=== PATIENT | male | born 1945 | race Caucasian/White ===

== ENCOUNTER 2018-01-25 09:39 | Observation (INO) | payer OTHER ==
[2018-01-25 10:53] LABS: Absolute Lymphocytes (CBC) 1.1 K/uL (0.7-4.9); Absolute Monocytes 0.6 K/uL (0.1-1.3); Absolute Neutrophil 6.9 K/uL (1.8-8.0); Basophils % 0.3 % (0-1.3); Eosinophils % 1.7 % (0-4.4); Hematocrit 49.8 % (39.6-49.0); Lymphocytes % 12.9 % (15.3-44.8); MCH 30.3 pg (27.0-35.0); MCV 91.6 fL (80-100); MPV 9.4 fL (7.6-11.3); Monocytes % 6.3 % (3.3-12.3); RBC Red Blood Cell Count 5.44 M/uL (4.33-5.43)
[2018-01-25 10:56] VITALS: BMI 26.6
[2018-01-25 11:03] LABS: Bicarbonate 26 mEq/L (21-31); Glucose Level 93 mg/dL (65-120); Sodium Level 136 mEq/L (135-145)
[2018-01-25 11:06] LABS: ALT/SGPT 16 IU/L (10-60); AST/SGOT 26 IU/L (10-42); Albumin 3.7 g/dL (3.2-5.5); Alkaline Phosphatase 66 IU/L (42-121); BUN Blood Urea Nitrogen 21 mg/dL (6-20); Protein, Total 6.1 g/dL (6.0-8.3)
[2018-01-25] MEDS: ALBUTEROL 2.5 MG/3 ML NEB SOL NEB SCH ×3 (11:27→19:32)
[2018-01-25] MEDS ORDERED: NA CHLORIDE 0.9% 100 ML ONE (11:47)
[2018-01-25] MEDS: AZITHROMYCIN IV 250 MG in NA CHLORIDE 0.9% 250 ML IVPB SCH (11:50)
[2018-01-25] MEDS: METHYLPREDNISOLONE 40 MG INJ IV SCH ×2 (11:50→20:20)
[2018-01-25] MEDS: Levofloxacin500mg IV 500 MG/100 ML BAG IV SCH (11:50)
[2018-01-25] MEDS: ACETAMINOPHEN 500 MG TAB PO PRN (15:56)
[2018-01-25] MEDS ORDERED: DICLOFENAC SODIUM APPL TOP PRN (16:37)
[2018-01-25] MEDS: PANTOPRAZOLE 40MG TABLET PO SCH (17:56)
[2018-01-25] MEDS ORDERED: ROPINIROLE HCL 0.25 MG TAB PO SCH (21:00)
[2018-01-25] MEDS ORDERED: TRAMADOL HCL 50 MG TAB PO SCH (21:00)
[2018-01-25] MEDS: GUAIFENESIN/CODEINE 5ML UCUP PO PRN (21:17)
[2018-01-26] MEDS: ACETAMINOPHEN 500 MG TAB PO PRN ×2 (01:01→07:36)
[2018-01-26] MEDS: GUAIFENESIN/CODEINE 5ML UCUP PO PRN (07:36)
[2018-01-26] MEDS: ALBUTEROL 2.5 MG/3 ML NEB SOL NEB SCH ×3 (07:50→16:07)
[2018-01-26] MEDS: AZITHROMYCIN IV 250 MG in NA CHLORIDE 0.9% 250 ML IVPB SCH (08:37)
[2018-01-26] MEDS: PANTOPRAZOLE 40MG TABLET PO SCH ×3 (08:38→17:54)
[2018-01-26] MEDS: METHYLPREDNISOLONE 40 MG INJ IV SCH (08:39)
[2018-01-26] MEDS ORDERED: HYDROCODONE/APAP 7.5/325 MG TAB PO PRN (08:47)
[2018-01-26] MEDS ORDERED: MAXZIDE (HCTZ 25/TRIAMTERENE 37.5MG) TAB PO SCH (09:00)
[2018-01-26] MEDS ORDERED: [UNRECOGNIZED DRUG - OTHER] PO SCH (09:00)
[2018-01-26] MEDS ORDERED: Morphine 2 MG/2 ML SYR IV ONE (09:00)
[2018-01-26] MEDS ORDERED: TAMSULOSIN 0.4 MG SR CAP PO SCH (09:00)
[2018-01-26] MEDS ORDERED: FOLIC ACID 1 MG TABLET PO SCH (09:00)
[2018-01-26] MEDS ORDERED: CYANOCOBALAMIN 1,000 MCG TAB PO SCH (09:00)
[2018-01-26 10:28] LABS: Urine Appearance CLEAR; Urine Bilirubin NEGATIVE (NEG); Urine Blood NEGATIVE (NEG); Urine Color YELLOW; Urine Glucose 1+ (NEG); Urine Protein NEGATIVE (NEG); Urine Urobilinogen 0.2 mg/dL (0.2-1.0)
[2018-01-26 10:41] LABS: Urine Bacteria <20 /HPF (NONE SEEN); Urine RBC <5 /HPF (NONE SEEN)
[2018-01-26 10:42] LABS: Urine Culture Reflex Order NOT NEEDED
[2018-01-26] MEDS: Levofloxacin500mg IV 500 MG/100 ML BAG IV SCH (11:17)
--- NOTE | 2018-01-26 13:26 | HP ---
Date of Admission: 01/25/2018 Chief Complaint: Coughing and wheezing. History Of Present Illness: A 72-year-old male was seen in the office for bronchitis 2 weeks ago. H e was given Augmentin. He returned because of continued symptoms. A chest x-ray was done. There wa s probable pneumonia; however, he did not want to go into hospital. He wanted to try a different ant ibiotic. He was given Levaquin, which he tried for another week and returned because of continued sy mptoms. The patient is admitted with a diagnosis of pneumonia and COPD exacerbation. The patient de nied any hemoptysis. No history of chest pain. The patient has a past history of smoking; however, he does not smoke presently. Past Medical History: Positive for hypertension, chronic pain syndrome, gastroesophageal reflux. Past Surgical History: Positive for gastric sleeve surgery, knee surgery, hand surgery, and foot antoni agapito. Other Medical Problems: Include history of disk disease of the spine. Family History: Noncontributory. Personal History: No known allergies. Home Medicines: Please refer to the list. Review of Systems: The patient denied any fever, chills, rigors. Physical Examination: General: Revealed a 72-year-old male with audible wheezing. HEENT: Congested throat. Neck: Supple. JVD negative. Chest: Bilateral wheezes. Heart: Regular. Abdomen: Pendulous. Nontender. Extremities: No edema. Laboratory Data: White count normal. Chest x-ray done last week showed COPD changes plus possible p neumonia. Assessment: 1.Chronic obstructive pulmonary disease exacerbation. 2.Pneumonia. 3.Hypertension. 4.Osteoarthritis. 5.Status post gastric sleeve surgery. Plan: The patient will receive IV Levaquin and Zithromax. The patient also will receive steroids. He will be restarted on his regular medications. Since he has been taking Lortab, it will be restart ed to prevent withdrawal. JESICA/WILI Voice ID: [id number]
--- NOTE | 2018-01-26 14:15 | RAD REPORT ---
EXAM DESCRIPTION: RAD - Chest Pa And Lat (2 Views) - 01/26/2018 1:54 pm CLINICAL HISTORY: Pneumonia COMPARISON: January 15 TECHNIQUE: PA and lateral views of the chest were obtained. FINDINGS: The lungs are fibrotic as a baseline. Interstitial pattern is similar to comparison. No fo ananda pneumonia is identifiable. No new or progressive finding from the prior study. Failure and volume overload are not suspected. Heart size is normal and central vasculature is within normal limits. No pleural effusion or pneumothorax seen. No acute bony finding noted. No aortic abnormality. IMPRESSION: Fibrotic lung change similar to prior imaging. No focal pneumonia identifiable.
[2018-01-26 16:22] VITALS: BP 155/67; TEMP 98.2
[2018-01-26 18:23] VITALS: O2SAT 98
== END 2018-01-26 18:04 | disposition home or self-care (01) ==
LOC: 4TH 09:58 → INTOOBSV 09:58
PROVIDERS: ADMIT Internal Medicine; ATTEND Internal Medicine
DX: J18.9 Pneumonia, unspecified organism (principal); J44.1 Chronic obstructive pulmonary disease with (acute) exacerbation; J44.0 Chronic obstructive pulmonary disease with (acute) lower respiratory infection; M19.90 Unspecified osteoarthritis, unspecified site; I10 Essential (primary) hypertension; G89.4 Chronic pain syndrome; K21.9 Gastro-esophageal reflux disease without esophagitis; Z98.84 Bariatric surgery status
CPT/HCPCS: 36415; 71046; 80053; 81001; 85025; 87040 ×2; 87070; 87205; 94640; G0378; G0379; J0456; J2270; J2920 ×3

== ENCOUNTER 2018-06-04 08:31 | Day surgery (SDC) | payer OTHER ==
[2018-06-04 09:16] VITALS: BMI 29.2
[2018-06-04 09:45] LABS: MPV 9.2 fL (7.6-11.3)
[2018-06-04 09:50] LABS: Protime INR 1.06
[2018-06-04 10:13] LABS: Platelet Estimate ADEQ
--- NOTE | 2018-06-04 12:51 | RAD REPORT ---
EXAM DESCRIPTION: CT - Myelogram C Spine - 06/04/2018 11:22 am CLINICAL HISTORY: ^M542, M4722 Patient detailed neck pain and left upper extremity radiculopathy COMPARISON: Cervical spine October 2015 TECHNIQUE: Axial 2 mm thick images of the cervical spine were obtained with sagittal and coronal rec onstruction images generated and reviewed. Intrathecal placement of contrast preceding the examinatio n. Myelogram procedure is separately detailed. All CT scans are performed using dose optimization technique as appropriate and may include automated exposure control or mA/KV adjustment according to patient size. FINDINGS: Cervical bodies are normal in height. No AP subluxation abnormality. There is a left conve x curvature at the cervicothoracic junction. No lateral subluxation abnormality. No cervical body of compression fracture. No lytic, sclerotic or expansile bony destructive process. No paraspinal mass. Mild degenerative changes are present at the dens C1 level. No encroachment into the central canal. C2-C3 level: No herniation or significant disc bulge. There is minimal endplate spurring without cent ral canal encroachment. No right foraminal encroachment. The patient has mild left bony foraminal enc roachment from prominent left facet joint degenerative change. C3-C4 level: No disc herniation. There is no central spinal stenosis. The patient has minimal disc bu lge and endplate spurring changes. No right foraminal encroachment. The patient has very pronounced l eft facet joint degenerative change causing moderate left bony foraminal encroachment. C4-C5 level: Posterior endplate spurring changes are present partially attenuating the anterior subar achnoid space. Midline canal diameter is 13 mm. Severe right-sided facet joint degenerative changes a re present causing advanced right foraminal stenosis. No significant left foraminal encroachment at t his level. Left-sided facet joint degenerative change is minimal. C5-C6 level: No herniation or significant disc bulge. Midline canal diameter is 14 mm. The patient wasserman s severe right-sided facet joint degenerative change causing advanced right foraminal stenosis. There is minimal mass effect on the right lateral aspect of the central canal and cord. No significant lef t foraminal stenosis. C6-C7 level: Disc is narrowed. There is circumferential endplate spurring. Mild disc bulge and endpla te spurring changes in the central canal partially attenuate the subarachnoid space. Midline canal is 10-11 mm. Mild to moderate bilateral foraminal encroachment is seen from bilateral uncovertebral ryan nt hypertrophy. C7-T1 level: No herniation or significant disc bulge. No central canal canal or significant right for aminal stenosis. Left foraminal encroachment is present from facet hypertrophic degenerative change. No focal narrowing or expansion of the cord. IMPRESSION: 1. Cervical spine degenerative changes are present as detailed. No central spinal stenos is present. No cervical cord abnormality is identifiable. 2. The patient has significant facet joint degenerative change and areas of uncovertebral joint hyper trophy causing significant bony foraminal encroachment of exit foramina. Findings are detailed at eac h level in the body of the report. 3. No acute or destructive bone process.
--- NOTE | 2018-06-04 12:54 | RAD REPORT ---
EXAM DESCRIPTION: RAD - Myelography C Spine - 06/04/2018 11:36 am CLINICAL HISTORY: ^M542, M4722 COMPARISON: Cervical spine imaging October 2015. TECHNIQUE: Patient presents for cervical myelogram and post-myelogram CT imaging. Patient had no con traindicated allergy or medication history. PT/INR studies show normal range value. The myelogram procedure, risks and alternatives were discussed with the patient in detail. After answ ering all questions, both oral and written consent were obtained. Time out procedure was performed. The patient was placed in an oblique prone position on the fluoroscopic table. Skin of the lower back was prepped and draped in the usual sterile fashion. From a oblique approach the thecal sac was acce ssed at the L4 level. Intrathecal placement was confirmed. Clear colorless CSF was observed. Approxim ately 9 mL of Isovue M 300 contrast material was instilled into the thecal sac. Needle was withdrawn and bandage placed to the puncture site. The patient was placed in supine Trendelenburg position with the chin flexed. This provided for a slow transfer of the contrast material into the cervical canal. The patient transferred to the CT suite for cross-sectional imaging. The patient tolerated procedure well without complications. Post-procedure care and precaution instru ctions were given to the patient. IMPRESSION: 1. Myelogram procedure was performed as detailed. Myelogram and CT findings are incorpor ated into the CT cervical spine report. 2. The patient tolerated procedure without complications. Post-procedure care and precaution instruct ions were given to the patient.
[2018-06-04 13:33] VITALS: TEMP 97.9
[2018-06-04 14:04] VITALS: BP 161/64; O2SAT 97
== END 2018-06-04 14:02 | disposition home or self-care (01) ==
LOC: DS 08:31
PROVIDERS: ATTEND Specialist
DX: M54.2 Cervicalgia (principal); M47.22 Other spondylosis with radiculopathy, cervical region
CPT/HCPCS: 36415; 62302; 72126; 85049; 85610; 85730

== ENCOUNTER 2019-12-30 08:18 | Day surgery (SDC) | payer OTHER ==
[2019-12-30 08:56] LABS: MPV 9.7 fL (7.6-11.3)
[2019-12-30 08:59] LABS: Protime INR 1.1
[2019-12-30 09:05] VITALS: BMI 29.4
[2019-12-30 09:27] LABS: Platelet Estimate ADEQ
--- NOTE | 2019-12-30 12:23 | RAD REPORT ---
EXAM DESCRIPTION: CT - C Spine Wo Con - 12/30/2019 11:22 am CLINICAL HISTORY: Arm radiculopathy M542,M5412 COMPARISON: 2018 TECHNIQUE: Computed axial tomography of the cervical spine were obtained with sagittal and coronal r econstruction images generated and reviewed. 12 cc Isovue 300 injected into the subarachnoid space All CT scans are performed using dose optimization technique as appropriate and may include automated exposure control or mA/KV adjustment according to patient size. FINDINGS: Mild spondylosis C2-3 Disc bulge at C3-4. Small osteophytes. Left facet hypertrophy. Moderate narrowing left neural foramin a Disc bulge and osteophytes C4-5. Facet hypertrophy. Moderate narrowing of the right neural foramina Disc bulge and osteophytes C5-6. Right facet hypertrophy. Marked narrowing of the right neural forami na Disc bulge and osteophytes C6-7. The thecal sac measures 9 millimeters. Moderate narrowing of the lef t neural foramina. Mild spondylosis C7-T1 Anterior fusion involves C7 and T1 by plate and screws. A bone plug is noted. A neurostimulator device is present within the cervical spinal canal. 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
--- NOTE | 2019-12-30 12:29 | RAD REPORT ---
EXAM DESCRIPTION: RAD - Myelography C Spine - 12/30/2019 11:09 am CLINICAL HISTORY: Radiculopathy COMPARISON: 2018 FINDINGS: Risks, benefits alternatives to the procedure spine to the patient and informed consent obtained. Patient placed prone into the fluoroscopy suite Skin and subcutaneous tissues anesthetized with lidocaine Under fluoroscopic guidance 22 gauge spinal needle was placed into the thecal sac at the L2-3 level a nd 12 cc Isovue-300 administered. Fluoroscopic image demonstrates opacification of the lumbar thecal sac. Fluoroscopy time 2.9 minutes Patient was then placed into the Trendelenburg position for few minutes. Patient then left for the CT department for a cervical CT IMPRESSION: Myelogram
[2019-12-30 14:25] VITALS: BP 133/53; TEMP 98.6; O2SAT 98
== END 2019-12-30 14:27 | disposition home or self-care (01) ==
LOC: DS 08:18
PROVIDERS: ATTEND Specialist
DX: M54.2 Cervicalgia (principal); M54.12 Radiculopathy, cervical region
CPT/HCPCS: 36415; 62302; 72125; 85049; 85610; 85730

== ENCOUNTER 2020-12-03 11:51 | Emergency (ER) | payer OTHER ==
--- OUTSIDE RECORDS SUMMARY | 2020-12-03 11:53 | XMS REPORT | Continuity of Care Document ---
:1945 Author Organization [facility] t Address [address] [place] [address] Care Team Providers Name Role Phone Jessica Monroe Attending Clinician Problems This patient has no known problems. Allergies, Adverse Reactions, Alerts This patient has no known allergies or adverse reactions. Medications This patient has no known medications. Procedures This patient has no known procedures. Encounters Start End Encounter Admission Attending Care Care Encounter Source Date/Time Date/Time Type Type Clinicians Facility Department ID 2020-05-26 2020-05-26 Office Erik [facility] [id number] 14:22:57 15:05:24 Visit [facility] [id number] Surgical [id number] Specialti [id number] es [address] 2020-05-26 2020-05-26 Telephone Erik [facility] [id number] 00:00:00 00:00:00 [facility] [id number] Surgical [id number] Specialti [id number] es [address] Results This patient has no known results.
[2020-12-03 14:12] LABS: SARS-COV-2 RT PCR NEGATIVE (NEGATIVE)
--- NOTE | 2020-12-03 15:23 | RAD REPORT ---
EXAM DESCRIPTION: RAD - Chest Pa And Lat (2 Views) - 12/03/2020 1:54 pm CLINICAL HISTORY: Cough;Congestion Chest pain. COMPARISON: Chest Pa And Lat (2 Views) dated 01/26/2018; Chest Pa And Lat (2 Views) dated 01/15/2018; C HEST PA AND LAT 2 VIEW dated 07/02/2014; CHEST PA AND LAT 2 VIEW dated 04/22/2010 FINDINGS: The lungs are emphysematous but clear. The heart is normal in size. No displaced fractures . Cervical hardware plate. IMPRESSION: Mild to moderate COPD.
--- NOTE | 2020-12-03 15:46 | ER ---
Nurse's Notes [facility] Name: Alexis Romo Age: 75 yrs Sex: Male : 1945 Arrival Date: 12/03/2020 Time: 11:54 Bed 23 Private MD: Diagnosis: Fever, unspecified;Chronic obstructive pulmonary disease with acute lower respiratory infection Presentation: 12/03 12:32 Chief complaint: Patient states: fever since 3 am took aspirin. Coronavirus screen: Client presents with at least one sign or symptom that may indicate coronavirus-19. Standard/surgical mask placed on the client. Provider contacted for isolation considerations. reports no known exposure. Ebola Screen: Patient negative for fever greater than or equal to 101.5 degrees Fahrenheit, and additional compatible Ebola Virus Disease symptoms. Initial Sepsis Screen: Does the patient meet any 2 criteria? No. Patient's initial sepsis screen is negative. Does the patient have a suspected source of infection?. Risk Assessment: Do you want to hurt yourself or someone else? Patient reports no desire to harm self or others. Onset of symptoms was December 03, 2020 at 03:00. 12:32 Method Of Arrival: Ambulatory 12:32 Acuity: BEBE 4 kl Triage Assessment: 12:36 General: Appears in no apparent distress. comfortable, well groomed, well developed, kl well nourished, Behavior is calm, cooperative. Historical: - Allergies: 12:35 No Known Allergies; kl - Immunization history:: Adult Immunizations up to date, . - Social history:: Smoking status: Patient/guardian denies using tobacco, but has a distant history of tobacco abuse. Screenin:32 Abuse screen: Denies threats or abuse. Denies injuries from another. Nutritional iw screening: No deficits noted. Tuberculosis screening: No symptoms or risk factors identified. Fall Risk No IV (0 pts). Assessment: 15:32 General: Appears in no apparent distress. Behavior is calm, cooperative. Pain: Denies iw pain. Neuro: Level of Consciousness is awake, alert, obeys commands, Oriented to person, place, time, situation, Moves all extremities. Full function. Respiratory: Reports shortness of breath cough that is Respiratory effort is even, unlabored, Respiratory pattern is regular, symmetrical. GI: Abdomen is non-distended. Derm: Skin is intact, is healthy with good turgor. Musculoskeletal: Range of motion: intact in all extremities. Vital Signs: 12:32 BP 123 / 53; Pulse 68; Resp 18; Temp 98.6(T); Pulse Ox 97% ; kl ED Course: 11:54 Patient arrived in ED. as 12:35 Triage completed. kl 13:52 XRAY Chest Pa And Lat (2 Views) In Process Unspecified. EDMS 15:26 Cary Pineda RN is Primary Nurse. iw 15:31 Arnaldo Bush PA is PHCP. jr8 15:31 Robbin Mclaughlin MD is Attending Physician. jr8 15:33 Patient has correct armband on for positive identification. iw 15:33 No provider procedures requiring assistance completed. iw Administered Medications: No medications were administered Outcome: 15:45 Discharge ordered by . jr8 16:01 Patient left the ED. walter Signatures: Dispatcher [employer] Brionna Castro RN RN Fran Khanna PA PA jmm Martinez, Amelia as Cary Pineda RN RN Arnaldo Bush PA PA jr8
--- NOTE | 2020-12-03 15:46 | EDPHYS ---
Physician Documentation [facility] Name: Alexis Romo Age: 75 yrs Sex: Male : 1945 Arrival Date: 12/03/2020 Time: 11:54 Bed 23 Private MD: ED Physician Robbin Mclaughlin HPI: 12/03 15:46 This 75 yrs old Male presents to ER via Ambulatory with complaints of r/o jr8 covid. 15:46 The patient reports fever, not measured (subjective). Onset: The symptoms/episode jr8 began/occurred acutely, yesterday. Modifying factors: there are no obvious modifying factors. Associated signs and symptoms: Pertinent positives: shortness of breath. Severity of symptoms: At their worst the symptoms were mild in the emergency department the symptoms have resolved. The patient has not experienced similar symptoms in the past. The patient has not recently seen a physician. Historical: - Allergies: 12:35 No Known Allergies; kl - Immunization history:: Adult Immunizations up to date, . - Social history:: Smoking status: Patient/guardian denies using tobacco, but has a distant history of tobacco abuse. ROS: 15:46 Eyes: Negative for injury, pain, redness, and discharge, ENT: Negative for injury, jr8 pain, and discharge, Neck: Negative for injury, pain, and swelling, Cardiovascular: Negative for chest pain, palpitations, and edema, Abdomen/GI: Negative for abdominal pain, nausea, vomiting, diarrhea, and constipation, Back: Negative for injury and pain, MS/Extremity: Negative for injury and deformity, Skin: Negative for injury, rash, and discoloration, Neuro: Negative for headache, weakness, numbness, tingling, and seizure. 15:46 Constitutional: Positive for fever. 15:46 Respiratory: Positive for shortness of breath. Exam: 15:46 Eyes: Pupils equal round and reactive to light, extra-ocular motions intact. Lids and jr8 lashes normal. Conjunctiva and sclera are non-icteric and not injected. Cornea within normal limits. Periorbital areas with no swelling, redness, or edema. ENT: Nares patent. No nasal discharge, no septal abnormalities noted. Tympanic membranes are normal and external auditory canals are clear. Oropharynx with no redness, swelling, or masses, exudates, or evidence of obstruction, uvula midline. Mucous membranes moist. Neck: Trachea midline, no thyromegaly or masses palpated, and no cervical lymphadenopathy. Supple, full range of motion without nuchal rigidity, or vertebral point tenderness. No Meningismus. Cardiovascular: Regular rate and rhythm with a normal S1 and S2. No gallops, murmurs, or rubs. Normal PMI, no JVD. No pulse deficits. Respiratory: Lungs have equal breath sounds bilaterally, clear to auscultation and percussion. No rales, rhonchi or wheezes noted. No increased work of breathing, no retractions or nasal flaring. Abdomen/GI: Soft, non-tender, with normal bowel sounds. No distension or tympany. No guarding or rebound. No evidence of tenderness throughout. Back: No spinal tenderness. No costovertebral tenderness. Full range of motion. Skin: Warm, dry with normal turgor. Normal color with no rashes, no lesions, and no evidence of cellulitis. MS/ Extremity: Pulses equal, no cyanosis. Neurovascular intact. Full, normal range of motion. Neuro: Awake and alert, GCS 15, oriented to person, place, time, and situation. Cranial nerves II-XII grossly intact. Motor strength 5/5 in all extremities. Sensory grossly intact. Cerebellar exam normal. Normal gait. Vital Signs: 12:32 BP 123 / 53; Pulse 68; Resp 18; Temp 98.6(T); Pulse Ox 97% ; kl MDM: 15:31 Patient medically screened. [email or web address]] 15:44 Data reviewed: vital signs, nurses notes, lab test result(s), radiologic studies, plain jr8 films. Data interpreted: Pulse oximetry: on room air is 97 %. Interpretation: normal. Counseling: I had a detailed discussion with the patient and/or guardian regarding: the historical points, exam findings, and any diagnostic results supporting the discharge/admit diagnosis, lab results, radiology results, the need for outpatient follow up, a family practitioner, to return to the emergency department if symptoms worsen or persist or if there are any questions or concerns that arise at home. 12/03 12:39 Order name: XRAY Chest Pa And Lat (2 Views); Complete Time: 15:31 iw 12/03 14:13 Order name: COVID-19/FLU A+B; Complete Time: 15:31 EDMS Administered Medications: No medications were administered Disposition: 12/03/20 15:45 Discharged to Home. Impression: Fever, unspecified, Chronic obstructive pulmonary disease with acute lower respiratory infection. - Condition is Stable. - Discharge Instructions: Fever, Adult, COVID-19. - Prescriptions for Levaquin 500 mg Oral Tablet - take 1 tablet by ORAL route once daily for 7 days; 7 tablet. - Medication Reconciliation Form, Thank You Letter, Antibiotic Education, Prescription Opioid Use form. - Follow up: Private Physician; When: 1 week; Reason: Recheck today's complaints, Continuance of care, Re-evaluation by your physician. - Problem is new. - Symptoms have improved. Addendum: 12/05/2020 07:17 Co-signature as Attending Physician, Robbin Mclaughlin MD I agree with the assessment and k dr plan of care. Signatures: Dispatcher [employer] [facility] Brionna Eaton RN RN kl Rittger, Kevin, MD MD kdr Mickail, Joel, PA PA [facility] Arnaldo Bush PA PA jr8 Corrections: (The following items were deleted from the chart) 12/03 13:28 12:39 CORONAVIRUS+MR.LAB.BRZ ordered. [facility] 13:30 12:43 Influenza Screen (A \T\ B)+BA.LAB.BRZ ordered. [facility] 16:01 15:45 12/03/2020 15:45 Discharged to Home. Impression: Fever, unspecified; Chronic jmm obstructive pulmonary disease with acute lower respiratory infection. Condition is Stable. Forms are Medication Reconciliation Form, Thank You Letter, Antibiotic Education, Prescription Opioid Use. Follow up: Private Physician; When: 1 week; Reason: Recheck today's complaints, Continuance of care, Re-evaluation by your physician. Problem is new. Symptoms have improved. jr8
[2020-12-04 03:08] VITALS: BP 123/53; TEMP 98.6; O2SAT 97
== END 2020-12-03 16:01 | disposition home or self-care (01) ==
LOC: ER 11:51
DX: J44.0 Chronic obstructive pulmonary disease with (acute) lower respiratory infection (principal); J22 Unspecified acute lower respiratory infection; Z20.822 Contact with and (suspected) exposure to COVID-19
CPT/HCPCS: 0240U; 71046; 99282

== ENCOUNTER 2023-01-17 07:03 | Day surgery (SDC) | payer OTHER ==
[2023-01-03 11:58] LABS: Absolute Lymphocytes (CBC) 1.8 K/uL (0.7-4.9); Hematocrit 48.3 % (39.6-49.0); MCV 95.4 fL (80-100); MPV 9.1 fL (7.6-11.3); RBC Red Blood Cell Count 5.07 M/uL (4.33-5.43)
[2023-01-03 12:12] LABS: Potassium 4.4 mEq/L (3.5-5.1)
--- NOTE | 2023-01-03 12:39 | RAD REPORT ---
EXAM DESCRIPTION: Katheryn Ceron (2 Views)01/03/2023 11:46 am CLINICAL HISTORY: Preop for urolift. COMPARISON: 2013 FINDINGS: Lungs are moderately hyperaerated. The lungs appear clear of acute infiltrate. The heart is normal size. Neurostimulator device in place IMPRESSION: No acute abnormalities displayed
--- NOTE | 2023-01-03 15:34 | EKG ---
Test Date: 2023-01-03 Test Time: 11:22:00 [place] Worker: BRANDO MEASUREMENT RESULTS: Intervals: Rate: 60 UT: 176 QRSD: 82 QT: 390 QTc: 390 [place]: P: 63 UT: 176 QRS: 5 T: 65 INTERPRETIVE STATEMENTS: Normal sinus rhythm Normal ECG Compared to ECG 08/01/2012 17:18:11 Myocardial infarct finding no longer present Electronically Signed On 01-03-23 15:34:15 CDT by Georgi Coy
[2023-01-17] MEDS ORDERED: FENTANYL CITR 100 MCG/2 ML ONE (07:50)
[2023-01-17] MEDS ORDERED: propofoL 200 MG/20 ML VIAL IV ONE (07:51)
[2023-01-17] MEDS ORDERED: MIDAZOLAM HCL 2 MG/2 ML INJ ONE (07:52)
[2023-01-17] MEDS ORDERED: ONDANSETRON 4 MG/2 ML VIAL ONE (07:54)
[2023-01-17] MEDS ORDERED: LIDOCAINE 1% MPF 5 ML VIAL ONE (07:56)
[2023-01-17] MEDS ORDERED: NA CHLORIDE 0.9% 1,000 ML ONE (08:02)
[2023-01-17] MEDS: CEFAZOLIN SODIUM 2 GM/VIAL ONE ×2 (09:04→09:10)
[2023-01-17] MEDS ORDERED: EPHEDRINE SULF 50 MG/ML VIAL ONE (09:20)
[2023-01-17] MEDS ORDERED: GLYCOPYRROLATE 0.2 MG/ML SYR ONE (09:35)
[2023-01-17] MEDS ORDERED: HYDROMORPHONE HCL 1 MG/ML INJ ONE (10:18)
[2023-01-17 10:23] VITALS: O2SAT 97
[2023-01-17] MEDS ORDERED: HYDROCODONE/APAP 5/325 MG TAB PO PRN (10:25)
[2023-01-17] MEDS ORDERED: HYDROCODONE/APAP 5/325 MG TAB ONE (11:01)
--- NOTE | 2023-01-17 11:20 | OP ---
Surgeon: SU REES Preoperative Diagnosis: Benign prostatic hypertrophy with lower urinary tract obstruction and sympto ms. Postoperative Diagnosis: Benign prostatic hypertrophy with lower urinary tract obstruction and sympt oms. Principal Procedure: Prostatic urethral lift with 5 implants placed. Indication For Procedure: Mr. Romo is a 77-year-old gentleman with lower urinary symptoms refr actory to Flomax and cystoscopic evidence of anterior lateral overhanging tissue causing potential ob struction. He was counseled as to options for management and elected to proceed with UroLift after h e was determined to be an adequate candidate. Procedure In Detail: The patient was consented in the preoperative holding area before being transfe rred to operative suite where general anesthesia was induced. He was given Ancef 2 g IV antimicrobia l prophylaxis and pneumo boots were provided for DVT prophylaxis. He was placed in the lithotomy pos ition, padded and secured to the table appropriately. His genitalia were prepped with Hibiclens and he was draped in standard fashion. The case was begun using the 20-Georgian UroLift obturator with the visual obturator to traverse the urethra and into the bladder with ease. As previously has been not ed, there was a patent bladder neck from prior TUR, but there was significant anterior overhanging ti ssue causing a degree of obstruction. As a result, the UroLift procedure was initiated by switching the visual obturator to the first UroLift delivery device and targeting an implant at the level of th e verumontanum on the left side. The first implant was placed at the approximately 2 o'clock positio n at the level of the verumontanum. The device was angled about 10 degrees into the tissue and the f irst pull of the trigger was performed deploying the needle through the substance of the prostate. A n additional 10 degrees of compression was then undertaken to ensure complete delivery of the needle through to the capsular surface of the prostate, and a second pull of the trigger deliver the capsula r tap and partially retracted the needle. A third pull of the trigger was then completely retracted the needle and further tensioned the suture before I angled the scope back toward the midline and adv anced about 2-3 mm toward the bladder neck before the monofilament was centered in the delivery bay. I then pulled the trigger for the fourth time tailoring the suture and applying the urethral end pie ce. This did nicely lateralize the obstructing tissue present within the apical mid gland. As a res ult, I placed a second implant using the same approach this time at the level of the verumontanum at approximately 10 o'clock. Once this was performed, and nice lateralization of the apical tissue had been achieved with previous patent bladder neck from the prior TURP, I then switched to a visual obtu rator and again surveyed the channel with his bladder decompressed. Again, I noted of persistent ant erior overhang the tissue just proximal to the verumontanum. As a result at this time, I employed 2 additional implants slightly more proximally in that overhanging tissue this time at the 12 to 1 o'cl ock position on the left and between the 11 and 12 o'clock position on the right sweeping the anterio r tissue anterolaterally and elevating it. Once this was performed, this did nicely elevate the tiss ue more on the right side than on the left because the implant did macerate the tissue a bit and deep ly imbedded within the substance of the tissue leaving some of the tissue extruding around. As a res ult, I placed a fifth implant this time on the left side between the apex and the midgland implant on that left side at around the 1 to 2 o'clock position to further lift the tissue that was overhanging from the left. Once this was performed, survey of the channel using the visual obturator revealed a beautiful continuous anterior channel that allowed the bladder to decompress easily when situated at the level of the verumontanum. As a result, I placed an 18-Georgian catheter into his bladder with ea se and 15 cc of sterile water in the balloon, and the patient was taken out of the lithotomy position before being awakened from general anesthesia. He was then transferred to a stretcher and then to [facility] recovery room in good condition. Complications: None. Discharge Disposition: He will be standard of postoperative UroLift pathway and discharged with a ca theter if he is successfully able to void. Otherwise, followup should be established in the Urology Clinic in about a month's time to ass ess his symptomatology. LUIS/MODL Voice ID: [id number] Report ID: [id number]
[2023-01-17 13:26] VITALS: BP 110/51; TEMP 97
== END 2023-01-17 13:17 | disposition home or self-care (01) ==
LOC: OR 07:03
PROVIDERS: ATTEND Urology
PROC: 0T7D8DZ Dilation of Urethra with Intraluminal Device, Via Natural or Artificial Opening Endoscopic (ICD-10-PCS; principal; 2023-01-17 08:30)
DX: N40.1 Benign prostatic hyperplasia with lower urinary tract symptoms (principal); N13.8 Other obstructive and reflux uropathy
CPT/HCPCS: 93005; 87088; 85025; 87086; 80048; 36415; 71046; 52441; 52442 ×4; J2704; J2001; J3010; J1170; J2405; J7030; J2250

== ENCOUNTER 2024-02-06 06:52 | Day surgery (SDC) | payer OTHER ==
--- NOTE | 2024-01-31 13:57 | RAD REPORT ---
EXAM DESCRIPTION: RAD - Chest Pa And Lat (2 Views) - 01/31/2024 1:49 pm CLINICAL HISTORY: Pre op pending urolift Chest pain. TECHNIQUE: PA and lateral views of the chest were obtained. FINDINGS: The lungs are hyperexpanded compatible with COPD. The heart is upper limit of normal in si ze. No fracture or aggressive bony process. Spinal stimulator device noted. IMPRESSION: COPD without acute process identified. The USPSTF recommends annual screening for lung cancer with low-dose CT (LDCT) in adults aged 50 to 8 0 years who have a 20 pack-year smoking history and currently smoke or have quit within the past 15 y ears.
[2024-01-31 14:26] LABS: Absolute Lymphocytes (CBC) 1.2 K/uL (0.7-4.9); Absolute Monocytes 0.7 K/uL (0.1-1.3); Absolute Neutrophil 5.2 K/uL (1.8-8.0); Basophils % 0.4 % (0-1.3); Eosinophils % 0.5 % (0-4.4); Hematocrit 43.5 % (39.6-49.0); Hemoglobin 14.3 g/dL (13.6-17.9); Lymphocytes % 16.5 % (15.3-44.8); MCH 31.9 pg (27.0-35.0); MCV 96.7 fL (80-100); MPV 9.8 fL (7.6-11.3); Monocytes % 9.5 % (3.3-12.3); Neutrophils % 73.1 % (41.7-73.7); Platelets 201 thou/uL (152-406); Red Cell Distribution Width 14.3 % (12.1-15.2)
[2024-01-31 14:36] LABS: Anion Gap 5.4 mEq/L (5.0-15.0); Potassium 4.4 mEq/L (3.5-5.1)
[2024-01-31 14:37] LABS: PT Prothrombin Time 11.1 SECONDS (9.5-12.5); PTT, Activated Partial Thromb 31.6 SECONDS (24.3-36.9); Protime INR 1.01
--- NOTE | 2024-02-03 11:52 | EKG ---
Test Date: 2024-01-31 Test Time: 13:20:08 Pawn Broker: AAKASH MEASUREMENT RESULTS: Intervals: Rate: 65 AR: 156 QRSD: 80 QT: 412 QTc: 428 [place]: P: 48 AR: 156 QRS: 13 T: 58 INTERPRETIVE STATEMENTS: Normal sinus rhythm Low voltage QRS Borderline ECG Compared to ECG 01/03/2023 11:22:00 Low QRS voltage now present Electronically Signed On 02-03-24 11:49:24 CDT by Keith Pino
[2024-02-06] MEDS ORDERED: FENTANYL CITR 100 MCG/2 ML ONE (07:18)
[2024-02-06] MEDS ORDERED: LIDOCAINE 1% MPF 5 ML VIAL ONE (07:18)
[2024-02-06] MEDS ORDERED: propofoL 200 MG/20 ML VIAL IV ONE (07:18)
[2024-02-06] MEDS: Ringers Lactate 1,000 ML IV ONE (07:19)
[2024-02-06] MEDS: CEFAZOLIN SODIUM 2 GM/VIAL ONE (07:48)
[2024-02-06] MEDS ORDERED: EPHEDRINE SULF 50 MG/ML VIAL ONE (07:50)
[2024-02-06] MEDS ORDERED: ONDANSETRON 4 MG/2 ML VIAL ONE (08:04)
[2024-02-06] MEDS: FENTANYL CITR 100 MCG/2 ML ONE (08:32)
[2024-02-06] MEDS ORDERED: CODEINE 30MG/APAP 300MG TAB ONE ×2 (09:38→10:01)
[2024-02-06] MEDS ORDERED: PHENAZOPYRIDINE 100MG TAB PO ONE (09:41)
[2024-02-06] MEDS: PHENAZOPYRIDINE 100MG TAB PO ONE (09:44)
[2024-02-06] MEDS: CODEINE 30MG/APAP 300MG TAB PO PRN (09:44)
[2024-02-06 12:30] VITALS: BP 137/60; TEMP 98.1; O2SAT 98
--- NOTE | 2024-02-06 20:32 | OP ---
Surgeon: SU REES Preoperative Diagnoses: 1.Benign prostatic hypertrophy with lower urinary tract obstruction and symptoms. 2.History of prostatic urethral lift. Postoperative Diagnoses: 1.Benign prostatic hypertrophy with lower urinary tract obstruction and symptoms. 2.History of prostatic urethral lift. 3.Meatal stenosis. Principal Procedure: 1.Prostatic urethral lift/UroLift with 4 implants placed. 2.Meatal dilation using sounds. Indication For Procedure: Mr. Romo presented to the Urology Clinic with initial improvement in his LUTS associated with BPH following UroLift performed over a year ago. Over time, his LUTS began to progressively worsen, and ultimately he underwent repeat evaluation, which revealed a residual de gree of intruding prostatic tissue. After attempts at medical management, which failed, he was ultim ately counseled on the potential for additional UroLift implants to be placed to try to further resol ve his symptoms. Procedure In Detail: The patient was consented in the preoperative holding area before being transfe rred to the operative suite where general anesthesia was induced. He was given Ancef 2 g IV antimicr obial prophylaxis, and pneumo boots were provided for DVT prophylaxis. He was placed in the lithotom y position, padded, and secured to the table appropriately, and his genitalia was prepped with Hibicl ens before being draped in standard fashion. The case was begun using sounds to dilate th e meatus and fossa navicularis to 26-Montserratian because of the degree of stenosis that prohibited passage of the cystoscope. After dilating the meatus, I was able to navigate the 20-Montserratian sheath with a vi sual obturator via the pendulous into the perineal and bulbar urethra, where a degree of stricture na rrowing was encountered in the membranous urethra. With some manipulation, I was able to navigate be yond this point of obstruction and through the prostatic urethra ultimately into his bladder. There, I decompressed his bladder of fluid and urine and then surveyed the prostatic channel again as well as surveying the entirety of the bladder. There were no papillary mucosal lesions, though there was a small 2-3 mm calculus noted within the bladder, which was subsequently removed by decompressing his bladder. I then switched the UroLift visual obturator for a UroLift delivery device and the first i mplant. I targeted this at the patient's bladder neck to mid gland region at around the 10 to 11 o'c lock position on the patient's right side. I angled the scope about 10-15 degrees against the latera l portion of the prostate superiorly before pulling the trigger once and deploying the needle through the substance of the prostate. I then angled the scope an additional 15-20 degrees laterally, ensur ing the needle was seated outside of the capsular surface before pulling the trigger a second time, d elivering the capsular tab and partially retracting the needle. I then pulled the trigger a third ti me, tensioning the suture before advancing the scope back toward the midline and 2-3 mm toward the bl adder neck until the white line of the monofilament was centered in the delivery bay, and I pulled th e trigger a fourth time, tailoring the suture and applying the urethral end piece. This did beautifu lly elevate the tissue in the mid bladder neck portion of the prostate anteriorly, partially creating the desired openness to the channel planned. I then surveyed the channel and there was some residua l intruding tissue emanating from the patient's right omer-prostate at the apex. So I switched the d elivery device for a new implant after advancing the scope back into his bladder, and then I again po sitioned the device against that tissue at the right apex at the level of the verumontanum and delive red a second implant in that location beautifully, lifting the tissue in that location. I then switc hed the delivery device for a visual obturator and surveyed the channel created. There was a slight degree of residual intruding tissue from the lower aspect of the prostate nearest the verumontanum; s o I targeted this tissue by lifting it and compressing it off to the side, angling the scope toward t he 9 o'clock position, ultimately deploying a third implant into that tissue nicely, lateralizing patrick t tissue and creating more of an open channel. I then surveyed the channel created again using a vis ual obturator, and at this point, a slight degree of tissue did seem to intrude between the initial a pical implant placed and the third implant placed on the patient's right apex. As a result, I target ed that tissue with a fourth and final implant, ultimately creating a beautiful continuous anterior c hannel with no residual obstruction despite the bladder being completely decompressed. There was a m inimal degree of hematuria noted, but everything otherwise looked well and all implants were in good position. As a result, I retrograde filled his bladder with saline before removing the scope and the n placed a new 18-Montserratian Skelton catheter into his bladder. The catheter was connected to a leg bag, a nd he was taken out of the lithotomy position. He was then awakened from general anesthesia before b eing transferred to a stretcher. He was then transferred to the recovery room in good condition. Complications: None. Discharge Disposition: He will be given a voiding trial per routine in the recovery room, but if he is unable to void successfully, a new catheter will be reinserted and he will be discharged. He will be instructed on how to remove the catheter at home tomorrow morning if so, but if they are uncomfor table doing so, I told them they could come by the office and we would assist them with a voiding tri al in the office. The patient should follow up in about 1 month per routine postoperative UroLift followup. LUIS/WILI Voice ID: [id number] Report ID: [id number]
== END 2024-02-06 11:15 | disposition home or self-care (01) ==
LOC: OR 06:52
PROVIDERS: ATTEND Urology
PROC: 0T7D8ZZ Dilation of Urethra, Via Natural or Artificial Opening Endoscopic (ICD-10-PCS; 2024-02-06)
PROC: 0T7D8DZ Dilation of Urethra with Intraluminal Device, Via Natural or Artificial Opening Endoscopic (ICD-10-PCS; principal; 2024-02-06 07:30)
DX: N40.1 Benign prostatic hyperplasia with lower urinary tract symptoms (principal); N13.8 Other obstructive and reflux uropathy; N35.911 Unspecified urethral stricture, male, meatal
CPT/HCPCS: 93005; 85025; 87086; 80048; 36415; 85610; 85730; 71046; 52281; J2704; J2001; J3010 ×2; J2405; J7120; C9740; 87088

== ENCOUNTER 2024-02-09 14:26 | Inpatient (IN) | payer OTHER ==
[2024-02-09] MEDS ORDERED: LEVALBUTEROL 1.25 MG/3 ML NEB ONE (15:06)
[2024-02-09] MEDS ORDERED: IPRATROPIUM BROM 0.5MG/2.5ML ONE (15:06)
--- NOTE | 2024-02-09 15:20 | RAD REPORT ---
EXAM DESCRIPTION: RAD - Chest Single View - 02/09/2024 3:14 pm CLINICAL HISTORY: DYSPNEA Chest pain. COMPARISON: <Comparisons> FINDINGS: Portable technique limits examination quality. Prominent emphysematous changes are seen throughout the lungs. Prominent reticular markings are seen in both lower lobes which may represent interstitial edema or atypical infection. The heart is normal in size. Cervical hardware plate.
[2024-02-09 15:48] LABS: Absolute Eosinophils 0.1 K/uL (0-0.5); Absolute Lymphocytes (CBC) 1.8 K/uL (0.7-4.9); Absolute Monocytes 0.7 K/uL (0.1-1.3); Absolute Neutrophil 5.7 K/uL (1.8-8.0); Basophils % 0.6 % (0-1.3); Eosinophils % 0.8 % (0-4.4); Hematocrit 45.6 % (39.6-49.0); Hemoglobin 15.1 g/dL (13.6-17.9); Lymphocytes % 21.4 % (15.3-44.8); MCH 31.5 pg (27.0-35.0); MCHC 33.1 g/dL (32.0-36.0); MCV 95.2 fL (80-100); MPV 8.9 fL (7.6-11.3); Monocytes % 8.5 % (3.3-12.3); Neutrophils % 68.7 % (41.7-73.7); Platelets 209 thou/uL (152-406); RBC Red Blood Cell Count 4.79 M/uL (4.33-5.43); Red Cell Distribution Width 13.8 % (12.1-15.2)
[2024-02-09 15:57] LABS: PT Prothrombin Time 12.5 SECONDS (9.5-12.5); PTT, Activated Partial Thromb 29.9 SECONDS (24.3-36.9); Protime INR 1.14
[2024-02-09 16:05] LABS: Albumin 3.5 g/dL (3.4-5.0); Albumin/Globulin Ratio 0.9 (1.1-1.8); Anion Gap 7.6 mEq/L (5.0-15.0); Bilirubin Total 0.9 mg/dL (0.2-1.0); Globulin 3.7 g/dL (2.3-3.5); Potassium 3.6 mEq/L (3.5-5.1); Protein, Total 7.2 g/dL (6.4-8.2); Troponin High Sensitivity 6.3 pg/mL (<58.9)
[2024-02-09 16:26] LABS: SARS-CoV-2 Antigen CONTROL BLUE LINE VIS/BG OK; SARS-CoV-2 Antigen Rapid Res Negative (Negative)
[2024-02-09] MEDS ORDERED: CEFTRIAXONE 1000 MG/VIAL ONE (17:27)
[2024-02-09] MEDS ORDERED: AZITHROMYCIN 500 MG INJ IVPB ONE (17:28)
[2024-02-09] MEDS ORDERED: NA CHLORIDE 0.9% 250 ML ONE (17:28)
--- NOTE | 2024-02-09 17:31 | ER ---
Nurse's Notes [facility] Name: Alexis Romo Age: 78 yrs Sex: Male : 1945 Arrival Date: 02/09/2024 Time: 14:26 Bed 20 Private MD: Diagnosis: COPD/ Chronic obstructive pulmonary disease with (acute) exacerbation;Pneumonia, unspecified organism Presentation: 02/08 14:41 Chief complaint: Patient states: SOB with cough for 2-3 days. +sweating with chills. ll1 Coronavirus screen: Client denies travel out of the [place] in the last 14 days. cough unrelated to allergies, difficulty breathing, fatigue, shortness of breath, Client presents with at least one sign or symptom that may indicate coronavirus-19. Standard/surgical mask placed on the client. Ebola Screen: Patient denies travel to an Ebola-affected area in the 21 days before illness onset. Initial Sepsis Screen: Does the patient meet any 2 criteria? No. Patient's initial sepsis screen is negative. Does the patient have a suspected source of infection? No. Patient's initial sepsis screen is negative. Risk Assessment: Do you want to hurt yourself or someone else? Patient reports no desire to harm self or others. Onset of symptoms was February 07, 2024. 14:41 Method Of Arrival: Wheelchair ll1 14:41 Acuity: BEBE 3 ll1 Triage Assessment: 14:43 General: Appears uncomfortable, Behavior is calm, cooperative, appropriate for age. ll1 Pain:. Respiratory: Reports shortness of breath cough that is labored breathing Onset: The symptoms/episode began/occurred 2-3 days, the patient has moderate shortness of breath. Historical: - Allergies: 14:40 No Known Allergies; ll1 - PMHx: 14:40 Hypertensive disorder; ll1 - Immunization history:: Adult Immunizations up to date. - Infectious Disease History:: Denies. - Social history:: Smoking status: Patient reports the use of cigarette tobacco products, smokes one-half pack cigarettes per day. Screenin:35 [facility] ED Fall Risk Assessment (Adult) History of falling in the last 3 months, me1 including since admission No falls in past 3 months (0 pts) Confusion or Disorientation No (0 pts) Intoxicated or Sedated No (0 pts) Impaired Gait Yes (1 pt) Mobility Assist Device Used Yes (1 pt) Altered Elimination No (0 pt) Score/Fall Risk Level 3 or more points = High Risk Maintained a safe environment, Hourly rounding (assess needs \T\ fall precautionary measures) done, Used ambulatory aids as needed (educated on \T\ assisted with). Abuse screen: Denies threats or abuse. Nutritional screening: No deficits noted. Tuberculosis screening: No symptoms or risk factors identified. Assessment: 15:00 General: Appears uncomfortable, ill, well developed, well nourished, Behavior is calm, me1 cooperative, appropriate for age, Reports SOB with cough, sweating w/chills x 2-3 days. 16:35 Pain: Denies pain. Neuro: Level of Consciousness is awake, alert, obeys commands, me1 Oriented to person, place, time, situation, Appropriate for age. Cardiovascular: Patient's skin is warm and dry. Rhythm is sinus bradycardia. Respiratory: Reports shortness of breath cough that is productive, persistent Airway is patent Respiratory effort is even, unlabored, Respiratory pattern is regular, symmetrical. Respiratory: Breath sounds with crackles bilaterally. GI: No signs and/or symptoms were reported involving the gastrointestinal system. : No signs and/or symptoms were reported regarding the genitourinary system. EENT: No signs and/or symptoms were reported regarding the EENT system. Derm: Skin is intact, is healthy with good turgor, Skin is pink, warm \T\ dry. Musculoskeletal: No signs and/or symptoms reported regarding the musculoskeletal system. 20:25 General: Appears in no apparent distress. Behavior is calm, cooperative. Neuro: Level kd3 of Consciousness is awake, alert, obeys commands, Oriented to person, place, time, situation. Respiratory: Airway is patent Trachea midline Respiratory effort is even, unlabored, Respiratory pattern is regular, symmetrical. Vital Signs: 14:41 BP 154 / 82; Pulse 63; Resp 18; Temp 97.2; Pulse Ox 96% on R/A; Weight 86.18 kg; Height ll1 5 ft. 10 in. ; Pain 8/10; 15:00 BP 156 / 85; Pulse 55; Resp 18; Pulse Ox 97% on R/A; me1 16:00 BP 140 / 72; Pulse 55; Resp 16; Pulse Ox 100% on R/A; me1 17:00 BP 143 / 59; Pulse 55; Resp 18; Pulse Ox 96% on R/A; me1 18:00 BP 152 / 71; Pulse 83; Resp 18; Pulse Ox 96% on R/A; me1 14:41 Body Mass Index 27.26 (86.18 kg, 177.8 cm) ll1 14:41 Pain Scale: Adult 1 ED Course: 14:28 Patient arrived in ED. rg4 14:28 Arm band placed on Patient placed in an exam room, on a stretcher. ll1 14:29 Negrita Spear FNP-C is PHCP. kb 14:29 Xavier Scruggs MD is Attending Physician. kb 14:43 Triage completed. ll1 14:45 Meeta De Santiago, PAXTON is Primary Nurse. me1 14:50 Patient has correct armband on for positive identification. Bed in low position. Call me1 light in reach. Side rails up X2. Provided Education on: POC. Verbalized understanding. . Client placed on continuous cardiac and pulse oximetry monitoring. NIBP monitoring applied. media traffic manager on. Pulse ox on. NIBP on. Warm blanket given. 14:50 No provider procedures requiring assistance completed. me1 15:16 Chest Single View XRAY In Process Unspecified. EDMS 15:34 Initial lab(s) drawn, by la, sent to lab. First set of blood cultures drawn COVID swab me1 sent to lab. Flu and/or RSV swab sent to lab. 15:37 Inserted saline lock: 22 gauge in left antecubital area, using aseptic technique. me1 15:37 SARS-COV-2 Antigen Rapid Sent. me1 15:37 Flu Sent. me1 15:37 BNP Sent. me1 15:37 Troponin High Sensitivity Sent. me1 15:38 Blood Culture Adult (2) Sent. me1 15:38 CBC with Diff Sent. me1 15:38 CMP Sent. me1 15:38 Lactate w/ 2H reflex if indic. Sent. me1 15:38 Protime (+inr) Sent. me1 15:38 Ptt, Activated Sent. me1 15:45 Second set of blood cultures drawn by la. me1 17:30 Dereje Duffy MD is Hospitalizing Provider. kb 20:25 Patient admitted, IV remains in place. kd3 Administered Medications: 15:41 Drug: Ipratropium Inhalation Aerosol 0.5 mg Inhalation once Route: Inhalation; me1 15:42 Drug: Levalbuterol Inhalation 1.25 mg Inhalation once Route: Inhalation; me1 17:37 Drug: Zithromax IVPB 500 mg IVPB once over 1 hrs; mix in 250 mL NS Route: IVPB; Infused me1 Over: 1 hrs; Site: left antecubital; 17:37 Drug: Rocephin IV 1 grams IV at calculated rate once; Given slow IV push per pharmacy me1 instructions Route: IV; Rate: calculated rate; Site: left antecubital; 17:37 Follow up: Response: No adverse reaction; IV Status: Completed infusion me1 Medication: 16:35 VIS not applicable for this client. me1 Outcome: 17:30 Decision to Hospitalize by Provider. kb 19:28 Admitted to Tele Report called to faxed at 19:30. me1 20:25 Condition: stable kd3 20:26 Patient left the ED. kd3 Signatures: Dispatcher [employer] EDNegrita Molina, MIS-Ambreen ABEBE-Natalia Hand rg4 Kayy Eaton, PAXTON RN ll1 Italia Hurt RN RN kd3 Meeta De Santiago RN RN me1 Corrections: (The following items were deleted from the chart) 16:38 15:00 General: Appears uncomfortable, ill, well developed, well nourished, Behavior is me1 calm, cooperative, appropriate for age, Reports me1
--- NOTE | 2024-02-09 17:31 | EDPHYS ---
Physician Documentation [facility] Name: Alexis Romo Age: 78 yrs Sex: Male : 1945 Arrival Date: 02/09/2024 Time: 14:26 Bed 20 Private MD: ED Physician Xavier Scruggs HPI: 02/08 14:49 This 78 yrs old Male presents to ER via Wheelchair with complaints of Breathing kb Difficulty. 14:49 Pt is a 78 year old male who presents for cough, wheezing, shortness of breath, fever kb and chills that started 2-3 days ago. has similar symptoms and diagnosed with pneumonia. Reports shortness of breath worse with exertion. Historical: - Allergies: 14:40 No Known Allergies; ll1 - PMHx: 14:40 Hypertensive disorder; ll1 - Immunization history:: Adult Immunizations up to date. - Infectious Disease History:: Denies. - Social history:: Smoking status: Patient reports the use of cigarette tobacco products, smokes one-half pack cigarettes per day. ROS: 15:01 Constitutional: As per HPI kb Exam: 15:01 Constitutional: This is a well developed, well nourished patient who is awake, alert, kb and in no acute distress. Head/Face: Normocephalic, atraumatic. ENT: Moist Mucous membranes Cardiovascular: Regular rate Abdomen/GI: Soft, non-tender. No distention Skin: Warm, dry with normal turgor. Normal color. MS/ Extremity: Pulses equal, no cyanosis. Neurovascular intact. Full, normal range of motion. Neuro: Awake and alert, GCS 15, oriented to person, place, time, and situation. Moves all extremities. Normal gait. 15:01 Cardiovascular: Edema: 3+ pitting edema to bilateral lower extremities, 15:01 Respiratory: the patient does not display signs of respiratory distress, Respirations: normal, Breath sounds: rhonchi, that are moderate, are scattered, 15:57 ECG was reviewed by the Attending Physician. kb Vital Signs: 14:41 BP 154 / 82; Pulse 63; Resp 18; Temp 97.2; Pulse Ox 96% on R/A; Weight 86.18 kg; Height ll1 5 ft. 10 in. ; Pain 8/10; 15:00 BP 156 / 85; Pulse 55; Resp 18; Pulse Ox 97% on R/A; me1 16:00 BP 140 / 72; Pulse 55; Resp 16; Pulse Ox 100% on R/A; me1 17:00 BP 143 / 59; Pulse 55; Resp 18; Pulse Ox 96% on R/A; me1 18:00 BP 152 / 71; Pulse 83; Resp 18; Pulse Ox 96% on R/A; me1 14:41 Body Mass Index 27.26 (86.18 kg, 177.8 cm) ll1 14:41 Pain Scale: Adult ll1 MDM: 14:29 Patient medically screened. kb 15:07 Data reviewed: vital signs, nurses notes. ED course: Pt reports chronic lower extremity kb edema. Denies CHF diagnosis. States he does not take diuretics. "I just deal with it.". 17:25 Differential diagnosis: Chronic Obstructive Pulmonary Disease pneumonia, pulmonary kb edema. Consideration of Admission/Observation Patient was admitted/placed on observation. Escalation of care including admission/observation considered. Counseling: I had a detailed discussion with the patient and/or guardian regarding the historical points, exam findings, and any diagnostic results supporting the discharge/admit diagnosis, lab results, radiology results, the need to transfer to another facility. ED course: Pt states he still feels short of breath and doesn't think he should go home. . 17:27 Historians other than the Patient: Daughter/Son: daughter. 02/08 14:35 Order name: Blood Culture Adult (2) 02/08 14:35 Order name: CBC with Diff; Complete Time: 15:51 kb 02/08 14:35 Order name: CMP; Complete Time: 16:11 02/08 14:35 Order name: Lactate w/ 2H reflex if indic.; Complete Time: 16:11 kb 02/08 14:35 Order name: Protime (+inr); Complete Time: 15:58 kb 02/08 14:35 Order name: Ptt, Activated; Complete Time: 15:58 kb 02/08 14:35 Order name: Troponin High Sensitivity; Complete Time: 16:11 kb 02/08 14:35 Order name: BNP; Complete Time: 16:11 kb 02/08 14:50 Order name: Flu; Complete Time: 16:11 kb 02/08 14:50 Order name: SARS-COV-2 Antigen Rapid; Complete Time: 16:34 kb 02/08 18:42 Order name: Urinalysis w/ reflexes EDMS 02/08 18:42 Order name: CBC with Automated Diff EDMS 02/08 18:42 Order name: CBC with Automated Diff EDMS 02/08 18:42 Order name: Comprehensive Metabolic Panel EDMS 02/08 18:42 Order name: Comprehensive Metabolic Panel EDMS 02/08 14:35 Order name: Chest Single View XRAY; Complete Time: 15:23 kb 02/08 14:35 Order name: Accucheck kb 02/08 14:35 Order name: Cardiac monitoring; Complete Time: 15:38 kb 02/08 14:35 Order name: EKG - Nurse/Tech; Complete Time: 15:38 kb 02/08 14:35 Order name: IV Saline Lock - Large Bore; Complete Time: 15:38 kb 02/08 14:35 Order name: Labs collected and sent; Complete Time: 15:38 kb 02/08 14:35 Order name: O2 Per Protocol; Complete Time: 15:38 kb 02/08 14:35 Order name: O2 Sat Monitoring; Complete Time: 15:38 kb 02/08 14:35 Order name: Vital Signs; Complete Time: 15:38 kb EC:57 Rate is 55 beats/min. Rhythm is regular. QRS [place] is Normal. MD interval is normal at kb 170 msec. QRS interval is normal at 82 msec. QT interval is normal at 394 msec. Administered Medications: 15:41 Drug: Ipratropium Inhalation Aerosol 0.5 mg Inhalation once Route: Inhalation; me1 15:42 Drug: Levalbuterol Inhalation 1.25 mg Inhalation once Route: Inhalation; me1 17:37 Drug: Zithromax IVPB 500 mg IVPB once over 1 hrs; mix in 250 mL NS Route: IVPB; Infused me1 Over: 1 hrs; Site: left antecubital; 17:37 Drug: Rocephin IV 1 grams IV at calculated rate once; Given slow IV push per pharmacy me1 instructions Route: IV; Rate: calculated rate; Site: left antecubital; 17:37 Follow up: Response: No adverse reaction; IV Status: Completed infusion me1 Disposition Summary: 02/09/24 17:30 Hospitalization Ordered Notes: Hospitalization Status: Observation kb Provider: Dereje Duffy Location: Telemetry/MedSurg (observation) kb Condition: Stable kb Problem: new kb Symptoms: are unchanged kb Bed/Room Type: Standard kb Room Assignment: 402(02/09/24 20:21) lg3 Diagnosis - COPD/ Chronic obstructive pulmonary disease with (acute) exacerbation kb - Pneumonia, unspecified organism kb Forms: - Medication Reconciliation Form kb - SBAR form kb - Leadership Thank You Letter kb Signatures: Dispatcher [employer] [facility] Negrita Spear FNP-C [employer] Lacie, RN RN lg3 Kayy Eaton RN RN ll1 Meeta De Santiago RN RN me1 Corrections: (The following items were deleted from the chart) 14:35 14:35 Chest Single View+[email or web address] ordered. EDNH EDMS 18:47 17:30 kb eb 20:21 18:47 412 eb lg3
[2024-02-09] MEDS ORDERED: ONDANSETRON 4 MG/2 ML VIAL IV PRN (18:36)
[2024-02-09] MEDS ORDERED: ACETAMINOPHEN 325 MG TABLET PO PRN (18:36)
--- NOTE | 2024-02-09 18:41 | P.HP ---
Certification for Inpatient Patient admitted to: Observation With expected LOS: <2 Midnights Practitioner: I am a practitioner with admitting privileges, knowledge of patient current condition, hospital course, and medical plan of care. Services: Services provided to patient in accordance with Admission requirements found in Title 42 Section 412.3 of the Code of Federal Regulations Patient History Date of Service: 02/09/24 Reason for admission: SOB History of Present Illness: 78 yrs old Male with past medical history of diabetes, hypertension, sleep apnea, dementia, neuropathy came to ER with shortness of breath and chest discomfort which has been going on for the last 2 to 3 days. Patient also complains of fever subjective and chills which started 3 days ago. Has sick contacts as his is having similar symptoms and diagnosed with pneumonia. Patient denies any chest pain. But associated with shortness of breath worse with exertion. Associated with cough with mucoid expectoration. Denies any nausea vomiting or diarrhea. No recent travel. Patient was assessed in the ER and was admitted for further management of possible pneumonitis Allergies No Known Allergies Allergy (Verified 02/06/24 07:20) Home medications list reviewed: Yes Home Medications: Memantine HCl [Namenda] 10 mg PO BID 01/25/18 Pantoprazole Sodium 2 tab PO DAILY 01/25/18 Tamsulosin HCl 1 tab PO BEDTIME 01/25/18 Celecoxib [Celebrex] 200 mg PO DAILY 01/03/23 Donepezil HCl [Aricept] 23 mg PO DAILY 01/03/23 Doxycycline Hyclate 100 mg PO DAILY 01/03/23 Duloxetine HCl [Cymbalta] 60 mg PO DAILY 01/03/23 Pregabalin [Lyrica] 150 mg PO TID 01/03/23 Acetaminophen [Acetaminophen Extra Strength] 2 tab PO Q6HP PRN 01/31/24 Bismuth Subsalicylate [Stomach Relief] 30 - 60 ml PO PRN PRN 01/31/24 Cholecalciferol (Vitamin D3) [Vitamin D3] 2 tab PO DAILY 01/31/24 Ferrous Sulfate [Iron] 325 mg PO DAILY 01/31/24 Fluocinolone Acetonide Oil [Flac Otic Oil] 5 drops LEFT EAR BEDTIME 01/31/24 Hydrocodone Bit/Acetaminophen [Hydrocodon-Acetaminoph 7.5-325] 1 each PO BID 01/31/24 Multivit-Minerals/Folic Acid [Multivitamin Gummies] 2 tab PO DAILY 01/31/24 Pravastatin [Pravachol*] 40 mg PO DAILY 01/31/24 Vitamin C/Biotin [Hair, Skin and Nails Gummies] 2 each PO DAILY 01/31/24 - Past Medical/Surgical History Diabetic: No Past Medical History: Reviewed- Non-Contributory -: sleep apnea -: h/o diabetes mellitus -: h/o HTN -: bulging disc-neck Past Surgical History: Reviewed- Non-Contributory -: L hand surg. -: L knee replace -: R knee surg. -: bunion removal bilat -: L shoulder surg. -: gastric sleeve - Family History Father -: Heart disease Mother -: Diabetes - Social History Smoking Status: Never smoker Alcohol use: No CD- Drugs: No Caffeine use: Yes Review of Systems 10-point ROS is otherwise unremarkable Physical Examination - Vital Signs Temperature: 97.8 F Blood Pressure: 154/82 Pulse: 78 Respirations: 18 Pulse Ox (%): 94 - Physical Exam General: Alert, In no apparent distress, Oriented x2, Cooperative HEENT: Atraumatic, Normocephalic Neck: Supple, 2+ carotid pulse no bruit, No Thyromegaly Respiratory: Clear to auscultation bilaterally, Crackles/rales Cardiovascular: Regular rate/rhythm, Normal S1 S2, Edema Capillary refill: <2 Seconds Gastrointestinal: Soft and benign, W/out hepatosplenomegaly Musculoskeletal: No clubbing, Swelling Integumentary: No rashes, No tenderness/swelling Neurological: Normal speech, Normal strength at 5/5 x4 extr, Cranial nerves 3-12 intact, Normal reflexes 2+ Lymphatics: No axilla or inguinal lymphadenopathy - Studies Laboratory Data (last 24 hrs) 02/09/24 02/09/24 02/09/24 15:34 15:34 15:34 WBC 8.30 Hgb 15.1 Hct 45.6 Plt Count 209 PT 12.5 INR 1.14 APTT 29.9 Sodium 140 Potassium 3.6 BUN 24 H Creatinine 0.86 Glucose 86 Total Bilirubin 0.9 AST 18 ALT 20 Alkaline Phosphatase 56 Microbiology Data (last 24 hrs): 02/09/24 15:14 Nasopharnyx Influenza Type A Antigen Screen - Final 02/09/24 15:14 Nasopharnyx Influenza Type B Antigen Screen - Final Assessment and Plan - Problems (Diagnosis) (1) PNA (pneumonia) Onset Date: 01/26/18 Current Visit: No Status: Acute Plan: Bibasilar pneumonia X-ray findings noted Started on Rocephin and Zithromax Will obtain cultures Change antibiotic as per sensitivity Monitor closely on telemetry. Acute on chronic CHF possibly systolic/diastolic Monitor closely on telemetry Started on diuresis X-ray findings consistent with CHF Continue home medications Titrate as needed Will obtain an echocardiogram Hypertension Antihypertensives titrated Continue home medications and titrate as needed Hyperlipidemia Continue statin Diabetes Insulin sliding scale Accu-Chek before every meal and at bedtime Dementia Neuropathy Continue home medications and titrate as needed GI/DVT prophylaxis Advanced directive full code Discharge Plan: Home Plan to discharge in: 48 Hours - Advance Directives Does patient have a Living Will: No Does patient have a Durable POA for Healthcare: No - Code Status/Comfort Care Code Status: Full Code Time Spent Managing Pts Care (In Minutes): 48
[2024-02-09] MEDS: ENOXAPARIN 40 MG/0.4 ML SQ SCH (21:50)
[2024-02-09] MEDS: AZITHROMYCIN IV 500 MG in NA CHLORIDE 0.9% 250 ML IVPB SCH (22:45)
[2024-02-09] MEDS: CEFTRIAXONE 1,000 MG in NA CHLORIDE 0.9% 50 ML IVPB SCH (22:46)
[2024-02-09] MEDS: CEFTRIAXONE 1000 MG/VIAL ONE (23:02)
[2024-02-09] MEDS: ACETAMINOPHEN 500 MG TAB PO PRN (23:11)
[2024-02-09] MEDS: FUROSEMIDE 20 MG/ 2ML VIAL IV SCH (23:28)
[2024-02-09] MEDS: PREGABALIN 150 MG CAP PO ONE (23:35)
[2024-02-10 01:33] LABS: Specific Gravity 1.006 (1.005-1.030); Urine Bilirubin NEGATIVE (Negative); Urine Blood Negative (Negative); Urine Clarity Clear (Clear); Urine Color Colorless (Yellow); Urine Glucose NEGATIVE (Negative); Urine Ketones NEGATIVE (Negative); Urine Microscopic Reflex YN NO UMIC; Urine Nitrite NEGATIVE (Negative); Urine Protein NEGATIVE (Negative); Urine Urobilinogen Normal (Normal); Urine pH 6.5 (5.0-7.0)
[2024-02-10 08:27] LABS: Absolute Basophils 0.1 K/uL (0-0.5); Absolute Eosinophils 0.1 K/uL (0-0.5); Absolute Monocytes 0.8 K/uL (0.1-1.3); Absolute Neutrophil 6.1 K/uL (1.8-8.0); Basophils % 1.3 % (0-1.3); Eosinophils % 0.8 % (0-4.4); Hematocrit 41.4 % (39.6-49.0); Lymphocytes % 21.7 % (15.3-44.8); MCH 32.2 pg (27.0-35.0); MCHC 33.9 g/dL (32.0-36.0); MCV 95.1 fL (80-100); MPV 8.6 fL (7.6-11.3); Monocytes % 8.8 % (3.3-12.3); Neutrophils % 67.4 % (41.7-73.7); Nucleated Red Blood Cells % 0.1 % (0-0); Platelets 203 thou/uL (152-406); RBC Red Blood Cell Count 4.35 M/uL (4.33-5.43); Red Cell Distribution Width 13.8 % (12.1-15.2)
[2024-02-10 08:44] LABS: Albumin 3.1 g/dL (3.4-5.0); Albumin/Globulin Ratio 1.1 (1.1-1.8); Anion Gap 11.5 mEq/L (5.0-15.0); Bilirubin Total 0.9 mg/dL (0.2-1.0); Globulin 2.9 g/dL (2.3-3.5); Potassium 3.5 mEq/L (3.5-5.1)
[2024-02-10] MEDS: VITAMIN D 1000 UNIT TAB PO SCH (09:01)
[2024-02-10] MEDS: DONEPEZIL HCL 5 MG TAB PO SCH (09:01)
[2024-02-10] MEDS: CELECOXIB 100 MG CAPSULE PO SCH (09:01)
[2024-02-10] MEDS: MEMANTINE HCL 10 MG TABLET PO SCH (09:01)
[2024-02-10] MEDS: DULOXETINE 30 MG CAP PO SCH (09:01)
[2024-02-10] MEDS: HYDROCODONE/APAP 7.5/325 MG TAB PO SCH (09:02)
[2024-02-10] MEDS: Multi-VIT(Centravite Senior) 1 TAB TAB PO SCH (09:02)
[2024-02-10] MEDS: FERROUS SULFATE 325 MG TAB PO SCH (09:02)
[2024-02-10] MEDS: PREGABALIN 150 MG CAP PO SCH (09:02)
[2024-02-10] MEDS: PANTOPRAZOLE 40MG TABLET PO SCH (09:02)
[2024-02-10] MEDS: POTASSIUM 25 MEQ EFFERV TAB PO ONE (11:48)
--- NOTE | 2024-02-10 14:21 | P.PN ---
Subjective Date of Service: 02/10/24 Chief Complaint: SOB Patient reports intermittent wheezing occasional nonproductive cough. He reports improvement in his shortness of breath. No recorded fever. Physical Examination - Vital Signs Temperature: 97.7 F Blood Pressure: 119/58 Pulse: 69 Respirations: 19 Pulse Ox (%): 94 - Studies Laboratory Data (last 24 hrs) 02/09/24 02/09/24 02/09/24 15:34 15:34 15:34 WBC 8.30 Hgb 15.1 Hct 45.6 Plt Count 209 PT 12.5 INR 1.14 APTT 29.9 Sodium 140 Potassium 3.6 BUN 24 H Creatinine 0.86 Glucose 86 Total Bilirubin 0.9 AST 18 ALT 20 Alkaline Phosphatase 56 Microbiology Data (last 24 hrs): 02/09/24 15:14 Nasopharnyx Influenza Type A Antigen Screen - Final 02/09/24 15:14 Nasopharnyx Influenza Type B Antigen Screen - Final Assessment And Plan - Plan Physical examination General: Alert and oriented x3, NAD, HEENT: Conjunctiva not pale, anicteric sclera Neck: Supple, no elevated JVD Heart: Heart sounds 1 and 2 normal, regular rhythm, normal rate, no pedal edema Lungs: Mild bibasilar Rales, scattered wheezes, adequate breath sounds bilaterally. Abdomen: Soft, nondistended, nontender, normal bowel sounds. Extremities: No tenderness, no deformity Skin: Normal skin turgor, no rash, no nodules or ulcers. Neuro: No focal motor deficit. Normal speech. Psychiatry: Normal mood, no agitation. Assessment and plan Bibasilar pneumonia X-ray findings noted. Spouse also had similar symptoms. Viral pneumonia is possible Continue IV Rocephin and Zithromax Follow blood cultures. Monitor closely on telemetry. Acute CHF, unknown EF. Monitor closely on telemetry X-ray findings suggest CHF Trial of IV Lasix. Echocardiogram Hyperlipidemia Continue statin Dementia Peripheral neuropathy Continue home medications. DVT prophylaxis: Lovenox Advanced directive: full code
[2024-02-10] MEDS: AZITHROMYCIN IV 500 MG in NA CHLORIDE 0.9% 250 ML IVPB SCH (16:31)
[2024-02-10] MEDS: CEFTRIAXONE 1,000 MG in NA CHLORIDE 0.9% 50 ML IVPB SCH (16:40)
[2024-02-10 19:47] LABS: Magnesium 2.1 mg/dL (1.6-2.4); Phosphorus 3.7 mg/dL (2.5-4.9)
[2024-02-10] MEDS: FLUOCINOLONE ACETONIDE OIL OTIC SCH (21:00)
[2024-02-10] MEDS: ATORVASTATIN 10 MG TAB PO SCH (21:15)
[2024-02-10] MEDS: TAMSULOSIN 0.4 MG SR CAP PO SCH (21:15)
[2024-02-11 06:44] LABS: C.diff Antigen/Toxin Ag neg : Tox neg (NEG : NEG); CDIFF INTERNAL NEG CONTROL White Background (WHITE BKGD); STOOL CONSISTENCY Liquid/Semi-Solid
[2024-02-11] MEDS: ALBUTEROL 2.5 MG/3 ML NEB SOL NEB PRN (13:56)
--- NOTE | 2024-02-11 14:38 | P.PN ---
Subjective Date of Service: 02/11/24 Chief Complaint: SOB Patient reports experiencing intermittent shortness of breath but overall states he feels much better than yesterday. No recorded fever. Physical Examination - Vital Signs Temperature: 97.4 F Blood Pressure: 139/65 Pulse: 61 Respirations: 24 Pulse Ox (%): 95 - Studies Laboratory Data (last 24 hrs) 02/10/24 19:18 Phosphorus 3.7 Magnesium 2.1 Assessment And Plan - Plan Physical examination General: Alert and oriented x3, NAD, HEENT: Conjunctiva not pale, anicteric sclera Neck: Supple, no elevated JVD Heart: Heart sounds 1 and 2 normal, regular rhythm, normal rate. Lungs: Mild bibasilar Rales, scattered wheezes, adequate breath sounds bilaterally. Abdomen: Soft, nondistended, nontender, normal bowel sounds. Extremities: No tenderness, 2+ bilateral lower extremity edema. Skin: Normal skin turgor, no rash, no nodules or ulcers. Neuro: No focal motor deficit. Normal speech. Psychiatry: Normal mood, no agitation. Assessment and plan Bibasilar pneumonia Viral pneumonia is possible given that his spouse also has similar illness. Continue IV Rocephin and Zithromax Follow blood cultures. Monitor closely on telemetry. Acute CHF, unknown EF. Titrate IV Lasix. Echocardiogram tomorrow. Hyperlipidemia Continue statin Dementia Peripheral neuropathy Continue home medications. DVT prophylaxis: Lovenox Advanced directive: full code
[2024-02-11] MEDS: FUROSEMIDE 20 MG/ 2ML VIAL IV SCH (16:10)
[2024-02-12 06:46] LABS: Absolute Basophils 0.1 K/uL (0-0.5); Absolute Eosinophils 0.1 K/uL (0-0.5); Absolute Lymphocytes (CBC) 2.3 K/uL (0.7-4.9); Absolute Neutrophil 6.3 K/uL (1.8-8.0); Basophils % 0.8 % (0-1.3); Eosinophils % 1.1 % (0-4.4); Hematocrit 43.8 % (39.6-49.0); Hemoglobin 14.2 g/dL (13.6-17.9); Lymphocytes % 23.2 % (15.3-44.8); MCH 31.2 pg (27.0-35.0); MCHC 32.4 g/dL (32.0-36.0); MCV 96.3 fL (80-100); MPV 9.1 fL (7.6-11.3); Monocytes % 9.8 % (3.3-12.3); Neutrophils % 65.1 % (41.7-73.7); Platelets 182 thou/uL (152-406); RBC Red Blood Cell Count 4.55 M/uL (4.33-5.43); Red Cell Distribution Width 13.8 % (12.1-15.2)
[2024-02-12 06:50] VITALS: BMI 27.3
[2024-02-12 06:59] LABS: Anion Gap 6.5 mEq/L (5.0-15.0); Potassium 3.5 mEq/L (3.5-5.1)
[2024-02-12 08:55] VITALS: BP 159/67; TEMP 96.9
[2024-02-12] MEDS: POTASSIUM 25 MEQ EFFERV TAB PO ONE (09:11)
[2024-02-12] MEDS: AZITHROMYCIN 250 MG TAB PO SCH (12:43)
--- NOTE | 2024-02-12 14:33 | ECHO ---
HEIGHT: 5 ft 10 in WEIGHT: 191 lb 0 oz DATE OF STUDY: 02/12/[address]: Isiah Duffy DO 2-DIMENSIONAL: YES M.MODE: YES DOPPLER: YES COLOR FLOW: YES TDS: YES PORTABLE: YES DEFINITY: NO BUBBLE STUDY: NO DIAGNOSIS: CONGESTIVE HEART FAILURE CARDIAC HISTORY: CATHERIZATION: NO SURGERY: NO PROSTHETIC VALVE: NO PACEMAKER: NO MEASUREMENTS (cm) DIASTOLIC (NORMALS) SYSTOLIC (NORMALS) IVSd 0.9 (0.6-1.2) LA Diam 2.0 (1.9-4.0) LVEF 53% LVIDd 4.9 (3.5-5.7) LVIDs 3.5 (2.0-3.5) %FS 27% LVPWd 1.0 (0.6-1.2) Ao Diam 2.8 (2.0-3.7) 2 DIMENSIONAL ASSESSMENT: RIGHT ATRIUM: NORMAL LEFT ATRIUM: NORMAL RIGHT VENTRICLE: NORMAL LEFT VENTRICLE: NORMAL TRICUSPID VALVE: TRACE TRICUSPID REGURGITATION MITRAL VALVE: NORMAL PULMONIC VALVE: NORMAL AORTIC VALVE: NORMAL PERICARDIAL EFFUSION: NONE AORTIC ROOT: NORMAL LEFT VENTRICULAR WALL MOTION: NORMAL. DOPPLER/COLOR FLOW: GRADE I DIASTOLIC DYSFUNCTION. COMMENTS: 1. NORMAL LEFT VENTRICULAR FUNCTION, EJECTION FRACTION 60-65%, NORMAL WALL MOTION. 2. GRADE I DIASTOLIC DYSFUNCTION. TECHNOLOGIST: RAYMOND RIOS
--- NOTE | 2024-02-12 14:54 | P.DS ---
Admission Date: 02/11/24 Discharge Date: 02/12/24 Disposition: ROUTINE DISCHARGE Discharge Condition: FAIR Reason for Admission: SOB Brief History of Present Illness: 78 yrs old Male with past medical history of diabetes, hypertension, sleep apnea, dementia, neuropathy came to ER with shortness of breath and chest discomfort which has been going on for the last 2 to 3 days. Patient also complains of fever subjective and chills which started 3 days ago. Has sick contacts as his is having similar symptoms and diagnosed with pneumonia. Patient denies any chest pain. But associated with shortness of breath worse with exertion. Associated with cough with mucoid expectoration. Denies any nausea vomiting or diarrhea. No recent travel. Patient was assessed in the ER and was admitted for further management of possible pneumonitis Hospital Course: Patient was admitted to the medical floor and the following medical problems addressed: Bibasilar pneumonia Viral pneumonia is possible given that his spouse also had similar illness. According to the daughter patient's was diagnosed with parainfluenza infection Patient was treated IV Rocephin and Zithromax for secondary bacterial and transition to oral cefdinir and oral Zithromax. Blood cultures yielded no growth. Acute diastolic heart failure Chest x-ray demonstrated reticular opacities. Patient also has significant bilateral lower extremity edema. Echocardiogram shows normal EF and some diastolic dysfunction. He was treated with IV Lasix. Patient respiratory symptoms significantly improved with treatment, lower extremity edema significantly improved. He was discharged with oral Lasix. Hyperlipidemia Continued statin Dementia Peripheral neuropathy Continued home medications. Vital Signs/Physical Exam: Temp Pulse Resp BP Pulse Ox 96.9 F 60 16 159/67 H 99 02/12/24 08:00 02/12/24 09:11 02/12/24 09:10 02/12/24 09:11 02/12/24 09:10 General: Alert, In no apparent distress, Oriented x3 HEENT: Mucous membr. moist/pink Neck: Supple, JVD not distended Respiratory: Clear to auscultation bilaterally, Normal air movement Cardiovascular: Regular rate/rhythm, Normal S1 S2, Edema Gastrointestinal: Normal bowel sounds, Soft and benign, Non-distended Musculoskeletal: No tenderness Integumentary: No rashes, No cyanosis Neurological: Normal strength at 5/5 x4 extr Laboratory Data at Discharge: WBC 9.80 thou/uL (4.3-10.9) 02/12/24 06:27 Hgb 14.2 g/dL (13.6-17.9) 02/12/24 06:27 Hct 43.8 % (39.6-49.0) 02/12/24 06:27 Plt Count 182 thou/uL (152-406) 02/12/24 06:27 PT 12.5 SECONDS (9.5-12.5) 02/09/24 15:34 INR 1.14 02/09/24 15:34 APTT 29.9 SECONDS (24.3-36.9) 02/09/24 15:34 Sodium 140 mEq/L (136-145) 02/12/24 06:27 Potassium 3.5 mEq/L (3.5-5.1) 02/12/24 06:27 BUN 29 mg/dL (7-18) H 02/12/24 06:27 Creatinine 0.84 mg/dL (0.70-1.30) 02/12/24 06:27 Glucose 103 mg/dL (74-106) 02/12/24 06:27 Phosphorus 3.7 mg/dL (2.5-4.9) 02/10/24 19:18 Magnesium 2.1 mg/dL (1.6-2.4) 02/10/24 19:18 Total Bilirubin 0.9 mg/dL (0.2-1.0) 02/10/24 08:13 AST 18 U/L (15-37) 02/10/24 08:13 ALT 18 U/L (16-61) 02/10/24 08:13 Alkaline Phosphatase 47 U/L (45-117) 02/10/24 08:13 Home Medications: Memantine HCl [Namenda] 10 mg PO BID 01/25/18 Pantoprazole Sodium 2 tab PO DAILY 01/25/18 Tamsulosin HCl 1 tab PO BEDTIME 01/25/18 Celecoxib [Celebrex] 200 mg PO DAILY 01/03/23 Donepezil HCl [Aricept] 23 mg PO DAILY 01/03/23 Doxycycline Hyclate 100 mg PO DAILY 01/03/23 Duloxetine HCl [Cymbalta] 60 mg PO DAILY 01/03/23 Pregabalin [Lyrica] 150 mg PO TID 01/03/23 Acetaminophen [Acetaminophen Extra Strength] 2 tab PO Q6HP PRN 01/31/24 Bismuth Subsalicylate [Stomach Relief] 30 - 60 ml PO PRN PRN 01/31/24 Cholecalciferol (Vitamin D3) [Vitamin D3] 2 tab PO DAILY 01/31/24 Ferrous Sulfate [Iron] 325 mg PO DAILY 01/31/24 Fluocinolone Acetonide Oil [Flac Otic Oil] 5 drops LEFT EAR BEDTIME 01/31/24 Hydrocodone Bit/Acetaminophen [Hydrocodon-Acetaminoph 7.5-325] 1 each PO BID 01/31/24 Multivit-Minerals/Folic Acid [Multivitamin Gummies] 2 tab PO DAILY 01/31/24 Pravastatin [Pravachol*] 40 mg PO DAILY 01/31/24 Vitamin C/Biotin [Hair, Skin and Nails Gummies] 2 each PO DAILY 01/31/24 Azithromycin Tab [Zithromax*] 250 mg PO DAILY #3 tab 02/12/24 Cefdinir [Cefdinir*] 300 mg PO BIDWM #6 cap 02/12/24 Furosemide [Lasix] 40 mg PO DAILY #30 tab 02/12/24 Spironolact/Hydrochlorothiazid [Spironolactone-Hctz 25-25 Tab] 1 tab PO DAILY 02/12/24 Topiramate 1 tab PO BID 02/12/24 New Medications: Cefdinir [Cefdinir*] 300 mg PO BIDWM #6 cap Furosemide [Lasix] 40 mg PO DAILY #30 tab Azithromycin Tab [Zithromax*] 250 mg PO DAILY #3 tab Diet: AHA Activity: Fall precautions Followup: NONE,NONE [Primary Care Provider] - 1-2 Weeks Time spent managing pt's care (in minutes): 35
--- NOTE | 2024-02-12 15:02 | EKG ---
Test Date: 2024-02-09 Test Time: 15:24:33 Lodging Facilities Manager: HOLLY MEASUREMENT RESULTS: Intervals: Rate: 55 SC: 170 QRSD: 82 QT: 412 QTc: 394 [place]: P: 54 SC: 170 QRS: 15 T: 34 INTERPRETIVE STATEMENTS: Sinus bradycardia Otherwise normal ECG Compared to ECG 01/31/2024 13:20:08 Sinus rhythm no longer present Electronically Signed On 02-12-24 14:53:47 CDT by Ney Okeefe
[2024-02-12] MEDS ORDERED: CEFDINIR 300 MG CAP PO SCH (17:00)
[2024-02-12 17:01] VITALS: O2SAT 99
== END 2024-02-12 16:37 | disposition home or self-care (01) | DRG 193 ==
LOC: ER 14:26 → ERHOLD 18:36 → 4TH 19:34 → OBSVTOIN 02-11 12:52
PROVIDERS: ADMIT Family Medicine; ATTEND Internal Medicine
DX: J12.9 Viral pneumonia, unspecified (principal); I50.31 Acute diastolic (congestive) heart failure; J44.0 Chronic obstructive pulmonary disease with (acute) lower respiratory infection; I11.0 Hypertensive heart disease with heart failure; E78.5 Hyperlipidemia, unspecified; E11.42 Type 2 diabetes mellitus with diabetic polyneuropathy; F03.90 Unspecified dementia, unspecified severity, without behavioral disturbance, psychotic disturbance, mood disturbance, and anxiety; F17.210 Nicotine dependence, cigarettes, uncomplicated; Z98.84 Bariatric surgery status; Z11.52 Encounter for screening for COVID-19; Z79.899 Other long term (current) drug therapy
CPT/HCPCS: 36415; 71045; 80048; 80053; 81003; 83605; 83735; 83880; 84100; 84484; 85025; 85610; 85730; 87040; 87070; 87077; 87186; 87205; 87324; 87804; 87811; 93005; 93306; 96374; 96375; 99285; G0378; J0696; J1650; J1940; J7050; J7613; J7614; J7644